=== PATIENT | female | born 1935 | race Caucasian/White ===

== ENCOUNTER 2019-06-27 12:36 | Outpatient (REF) | payer MEDICARE, SELFPAY ==
[2019-06-27 18:43] LABS: Anion Gap 10.8 mmol/L (3-11); BUN 11 mg/dL (7-18); CO2 26.2 mmol/L (21.0-32.0); CREATININE 0.86 mg/dL (0.55-1.02); Calcium 9.5 mg/dL (8.5-10.1); Chloride 110 mmol/L (98-107); Glucose 122 mg/dL (70-100); Potassium 4.5 mmol/L (3.5-5.1); Sodium 147 mmol/L (136-145)
== END 2019-06-27 12:56 ==
LOC: NCHCN 12:36
PROVIDERS: PCP Nurse Practitioner Family; Visit Provider Nurse Practitioner Family
DX: I10 Essential (primary) hypertension (principal)
CPT/HCPCS: 80048

== ENCOUNTER 2020-09-29 15:43 | Outpatient (REF) | payer MEDICARE, SELFPAY ==
[2020-09-29 19:03] LABS: HCT 46.5 % (36.0-46.0); HGB 15.2 g/dL (11.2-15.7); MCH 31.9 pg (27.0-33.0); MCHC 32.7 % (32.0-36.0); MCV 97.5 fL (80-95); MPV 10.7 fL (8.0-11.0); Platelet Count 280 10^3/uL (130-400); RBC 4.77 10^6/uL (3.93-5.22); RDW 13.3 % (11.7-14.6); RDW-SD 48.2 fL; WBC 10.02 10^3/uL (4.4-10.8)
[2020-09-29 19:47] LABS: ALT 22 U/L (14-59); AST 26 U/L (15-37); Albumin 3.7 g/dL (3.4-5.0); Alkaline Phosphatase 186 U/L (46-116); Anion Gap 6.5 mmol/L (3-11); BUN 14 mg/dL (7-18); Bilirubin, Total 0.6 mg/dL (0.2-1.0); CO2 28.5 mmol/L (21.0-32.0); CREATININE 0.86 mg/dL (0.55-1.02); Calcium 9.1 mg/dL (8.5-10.1); Chloride 103 mmol/L (98-107); Glucose 87 mg/dL (74-106); Potassium 4.5 mmol/L (3.5-5.1); Sodium 138 mmol/L (136-145); Total Protein 7.6 g/dL (6.4-8.2); Vitamin B12 368 pg/mL (193-986)
[2020-09-29 19:54] LABS: Folate > 20.0 ng/mL (8.6-20.0)
[2020-09-29 20:03] LABS: Bilirubin, Direct 0.21 mg/dL (0.00-0.20)
== END 2020-09-29 16:03 ==
LOC: NCHCN 15:43
PROVIDERS: PCP Nurse Practitioner Family; Visit Provider Nurse Practitioner Family
DX: I10 Essential (primary) hypertension (principal); R68.89 Other general symptoms and signs
CPT/HCPCS: 80048; 80076; 85027; 82607; 82746; 83735

== ENCOUNTER 2021-03-30 14:18 | Outpatient (REF) | payer MEDICARE, SELFPAY ==
[2021-03-30 19:22] LABS: ALT 24 U/L (14-59); AST 21 U/L (15-37); Albumin 3.5 g/dL (3.4-5.0); Alkaline Phosphatase 185 U/L (46-116); Anion Gap 9.9 mmol/L (3-11); BUN 13 mg/dL (7-18); Bilirubin, Total 0.8 mg/dL (0.2-1.0); CO2 28.1 mmol/L (21.0-32.0); CREATININE 0.9 mg/dL (0.55-1.02); Calcium 9.1 mg/dL (8.5-10.1); Chloride 106 mmol/L (98-107); GGT 178 U/L (5-55); Glucose 131 mg/dL (74-106); Potassium 4.2 mmol/L (3.5-5.1); Sodium 144 mmol/L (136-145); Total Protein 7.4 g/dL (6.4-8.2)
[2021-03-30 19:32] LABS: Bilirubin, Direct 0.2 mg/dL (0.0-0.2)
== END 2021-03-30 14:19 | disposition home or self-care (01) ==
LOC: NCHCN 14:18
PROVIDERS: PCP Nurse Practitioner Family; Visit Provider Nurse Practitioner Family
DX: I10 Essential (primary) hypertension (principal); R74.8 Abnormal levels of other serum enzymes
CPT/HCPCS: 80048; 80076; 82977

== ENCOUNTER 2023-04-05 11:24 | Outpatient (REF) | payer MEDICARE, SELFPAY ==
[2023-04-05 19:58] LABS: HCT 45.2 % (36.0-46.0); HGB 14.8 g/dL (11.2-15.7); MCH 32.5 pg (27.0-33.0); MCHC 32.7 % (32.0-36.0); MCV 99 fL (80-95); MPV 10.4 fL (8.0-11.0); Platelet Count 277 10^3/uL (130-400); RBC 4.56 10^6/uL (3.93-5.22); RDW 13.8 % (11.7-14.6); RDW-SD 50.7 fL; WBC 6.81 10^3/uL (4.4-10.8)
[2023-04-05 20:12] LABS: ALT 21 U/L (14-59); AST 26 U/L (15-37); Albumin 3.6 g/dL (3.4-5.0); Alkaline Phosphatase 184 U/L (46-116); Anion Gap 6.4 mmol/L (3-11); BUN 11 mg/dL (7-18); Bilirubin, Direct 0.2 mg/dL (0.0-0.2); Bilirubin, Total 0.7 mg/dL (0.2-1.0); CO2 29.6 mmol/L (21.0-32.0); CREATININE 0.9 mg/dL (0.55-1.02); Calcium 9.6 mg/dL (8.5-10.1); Chloride 104 mmol/L (98-107); Estimated GFR 62.65 (mL/min/1.73m2); Glucose 87 mg/dL (74-106); Potassium 4.6 mmol/L (3.5-5.1); Sodium 140 mmol/L (136-145); Total Protein 8.2 g/dL (6.4-8.2)
[2023-04-05 21:00] LABS: Vitamin B12 299 pg/mL (193-986)
== END 2023-04-05 11:25 | disposition home or self-care (01) ==
LOC: NCHCN 11:24
PROVIDERS: PCP Nurse Practitioner Family; Visit Provider Nurse Practitioner Family
DX: I10 Essential (primary) hypertension (principal); I48.0 Paroxysmal atrial fibrillation; G45.9 Transient cerebral ischemic attack, unspecified; R68.89 Other general symptoms and signs; R74.8 Abnormal levels of other serum enzymes
CPT/HCPCS: 80048; 80076; 85027; 82607

== ENCOUNTER 2024-07-15 19:36 | Outpatient (REF) | payer MEDICARE, SELFPAY ==
[2024-07-15 20:15] LABS: Anion Gap 7.4 mmol/L (3-11); BUN 12 mg/dL (7-18); CO2 26.6 mmol/L (21.0-32.0); CREATININE 0.8 mg/dL (0.55-1.02); Calcium 9.3 mg/dL (8.5-10.1); Chloride 106 mmol/L (98-107); Estimated GFR 71.71 (mL/min/1.73m2); Glucose 88 mg/dL (74-106); Potassium 4.1 mmol/L (3.5-5.1); Sodium 140 mmol/L (136-145); TSH 2.12 uIU/Ml (0.36-3.74)
== END 2024-07-15 19:37 | disposition home or self-care (01) ==
LOC: NCHCN 19:36
PROVIDERS: PCP Nurse Practitioner Family; Visit Provider Nurse Practitioner Family
DX: L65.9 Nonscarring hair loss, unspecified (principal)
CPT/HCPCS: 80048; 84443

== ENCOUNTER 2025-09-30 15:26 | Outpatient (CLI) | payer MEDICARE, SELFPAY ==
--- NOTE | 2025-09-30 14:00 | DI.RAD_ITS ---
Exam(s) XR SHOULDER RT COMPLETE 2+V EXAM: XR SHOULDER RT COMPLETE 2+V CLINICAL HISTORY: RIGHT SHOULDER PAIN. TECHNIQUE: 2D digital imaging was performed of the right shoulder. Two images were obtained. Axillary and Grashey views were obtained. COMPARISON: No exams were available for comparison FINDINGS: BONES: No acute fracture is present. No bony destructive lesion is seen. JOINTS: No dislocation present. There are mild degenerative changes seen at the acromioclavicular joint. The glenohumeral joint is well maintained. SOFT TISSUE: Normal. 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 DATA REPOSITORY: RADIATION DOSE DELIVERED:
== END 2025-09-30 15:27 | disposition home or self-care (01) ==
LOC: DIORS 15:26
PROVIDERS: PCP Nurse Practitioner Family; Referring Provider Nurse Practitioner Family; Visit Provider Student in an Organized Health Care Education/Training Program
DX: M19.011 Primary osteoarthritis, right shoulder (principal); M25.511 Pain in right shoulder; I10 Essential (primary) hypertension
CPT/HCPCS: 99203; 20610; J1010; 73030